=== PATIENT | male | born 1975 | race Two or more races ===

== ENCOUNTER 2019-01-17 10:01 | Emergency (ER) | payer SELFPAY ==
--- NOTE | 2019-01-17 10:28 | EDM.PDOC ---
ED HPI GENERAL MEDICAL PROBLEM - General Chief Complaint: Genitourinary Problem Stated Complaint: BLOOD IN URINE Time Seen by Provider: 01/17/19 10:09 Source of Information: Reports: Patient History Limitations: Reports: No Limitations - History of Present Illness INITIAL COMMENTS - FREE TEXT/NARRATIVE: Presents reporting blood in his urine a couple times yesterday. Patient states that a couple of months ago he noticed a couple of tiny blood clots in his urine as well. He never sought medical care at that time. He denies fever burning urgency or frequency of urination. He reports he has some "pressure" over his bladder. No personal or family history of renal stones. He is sexually active with one partner for the last 2 years. Denies back pain, nausea, vomiting , diarrhea, constipation or abdominal pain. [id number] smoking history. He is from [place] and is traveling back to [place] on . Works in the [employer]. - Related Data Allergies Allergy/AdvReac Type Severity Reaction Status Date / Time No Known Allergies Allergy Verified 01/17/19 10:10 Home Meds: Home Meds . [No Known Home Meds] 01/17/19 [History] Past Medical History - Past Health History Medical/Surgical History: Denies Medical/Surgical History Social & Family History - Family History Family Medical History: Noncontributory - Tobacco Use Smoking Status *Q: Current Every Day Smoker Years of Tobacco use: 20 Packs/Tins Daily: 0.8 - Caffeine Use Caffeine Use: Reports: None - Recreational Drug Use Recreational Drug Use: No ED ROS GENERAL - Review of Systems Review Of Systems: ROS reveals no pertinent complaints other than HPI. ED EXAM, RENAL/ - Physical Exam Exam: See Below Exam Limited By: No Limitations General Appearance: Alert, No Apparent Distress Ears: Normal External Exam Nose: Normal Inspection Throat/Mouth: Normal Inspection Head: Atraumatic, Normocephalic Neck: Normal Inspection Respiratory/Chest: No Respiratory Distress, Lungs Clear, Normal Breath Sounds Cardiovascular: Normal Peripheral Pulses, Regular Rate, Rhythm, No Murmur GI/Abdominal: Normal Bowel Sounds, Soft, Non-Tender, No Distention Back Exam: No: CVA Tenderness (L), CVA Tenderness (R) Extremities: Normal Inspection Neurological: Alert, Oriented, Normal Cognition Psychiatric: Normal Affect, Normal Mood Skin Exam: Warm, Dry, Intact, Normal Color, No Rash Lymphatic: No Adenopathy Course - Vital Signs Last Recorded V/S: Last Vital Signs Temp 36.1 C 01/17/19 10:11 Pulse 84 01/17/19 10:11 Resp 18 01/17/19 10:11 BP 139/96 H 01/17/19 10:11 Pulse Ox 99 01/17/19 10:11 - Orders/Labs/Meds Labs: Laboratory Tests 01/17/19 Range/Units 10:22 Urine Color YELLOW Urine Appearance CLEAR Urine pH 6.0 (5.0-8.0) Ur Specific [place] 1.025 (1.001-1.035) Urine Protein NEGATIVE (NEGATIVE) mg/dL Urine Glucose (UA) NEGATIVE (NEGATIVE) mg/dL Urine Ketones NEGATIVE (NEGATIVE) mg/dL Urine Occult Blood TRACE-INTACT H (NEGATIVE) Urine Nitrite NEGATIVE (NEGATIVE) Urine Bilirubin NEGATIVE (NEGATIVE) Urine Urobilinogen 0.2 (<2.0) EU/dL Ur Leukocyte Esterase NEGATIVE (NEGATIVE) Urine RBC 0-2 (0-2/HPF) Urine WBC 0-2 (0-5/HPF) Ur Epithelial Cells OCCASIONAL (NONE-FEW) Amorphous Sediment NOT SEEN (NEGATIVE) Urine Bacteria NOT SEEN (NEGATIVE) Urine Mucus LIGHT (NONE-MOD) - Re-Assessments/Exams Free Text/Narrative Re-Assessment/Exam: 01/17/19 11:03 Discussion with the patient: There is no signs of infection in your urine. You do however have some occult blood. You will are a smoker with recurrent blood in the urine. This requires follow-up by urology. He was asked to make an appointment with primary care immediately upon his return to [place] with referral to urology. He should get tested for STDs as well. Departure - Departure Time of Disposition: 11:05 Disposition: Home, Self-Care 01 Condition: Good Clinical Impression: Hematuria - Discharge Information *PRESCRIPTION DRUG MONITORING PROGRAM REVIEWED*: Not Applicable *COPY OF PRESCRIPTION DRUG MONITORING REPORT IN PATIENT JUSTYNA: Not Applicable Referrals: PCP,None [Primary Care Provider] - Forms: ED Department Discharge Additional Instructions: 1. As discussed, you must get an appointment with primary care as soon as you return to [place] on . STD testing as well as referral to urology is highly recommended. Smoking is a risk factor for bladder cancer. 2. Drink plenty of fluids to keep your urine pale yellow and your bladder flushed. This will prevent clots and urinary retention.
== END 2019-01-17 11:15 | disposition home or self-care (01) ==
LOC: MW.ED 10:01
DX: R31.9 Hematuria, unspecified (principal); F17.210 Nicotine dependence, cigarettes, uncomplicated
CPT/HCPCS: 81001; 99283